=== PATIENT | male | born 1970 | race Caucasian/White ===

== ENCOUNTER 2018-08-26 10:53 | Observation (INO) ==
[2018-08-26] MEDS ORDERED: ASPIRIN PO ONE ×2 (10:56→11:35)
--- NOTE | 2018-08-26 13:23 | EKG Report ---
Test Performed on : 08/26/2018 11:06:59 AM Test Reason : cp Blood Pressure : / mmHG Vent. Rate : 084 BPM Atrial Rate : 084 BPM P-R Int : 150 ms QRS Dur : 084 ms QT Int : 368 ms P-R-T Axes : 033 -05 026 degrees QTc Int : 434 ms Normal sinus rhythm. Normal ECG No previous ECGs available Unconfirmed Result
--- NOTE | 2018-08-26 13:44 | Diag Imaging Result Doc PS360 ---
CHEST-1 VIEW - 08/26/2018 INDICATION: chest pain COMPARISON: None FINDINGS: The lungs are normally expanded and clear. Heart size and mediastinal contours are normal. No pneumothorax or pleural effusion. IMPRESSION: Negative exam. Electronically signed by Shyam Guillermo 08/26/2018 1:42 PM
[2018-08-26 14:05] LABS: BASO# 0.06 X1000 (0.0-0.2); BASO% 0.7 % (0.0-0.8); EOS# 0.28 X1000 (0.0-0.7); EOS% 3.2 % (0.0-10.0); HEMATOCRIT 45.6 % (42.0-52.0); HEMOGLOBIN 16.3 g/dL (14.0-18.0); IMM GRAN# 0.03 X1000 (0.0-0.04); IMM GRAN% 0.3 % (0.0-0.5); LYMPH# 3.35 X1000 (1.2-3.4); LYMPH% 38.2 % (20.5-51.1); MCH 29.5 PG (27-31); MCHC 35.7 g/dL (33-37); MCV 82.5 FL (81-99); MONO# 0.69 X1000 (0.11-0.59); MONO% 7.9 % (1.7-9.3); MPV 10.2 FL (7.4-10.4); NEUT# 4.35 X1000 (1.4-6.5); NEUT% 49.7 % (42.2-75.2); PLT 264 X1000 (130-400); RBC 5.53 XMIL (4.7-6.1); RDW 12.9 % (11.5-14.5); WBC 8.76 X1000 (4.8-10.8)
[2018-08-26 14:10] LABS: INR 0.91
[2018-08-26 14:12] LABS: PTT 26.4 Seconds (22.3-41.8)
[2018-08-26 14:23] LABS: AGAP 13; CHLORIDE 98 mmol/L (98-107); POTASSIUM 4.6 mmol/L (3.5-5.1); SODIUM 134 mmol/L (136-145); TCO2 23 mmol/L (25-35)
[2018-08-26 14:24] LABS: ALB/GLOB RATIO 1.3; ALBUMIN 4.1 g/dL (3.5-5.0); ALKALINE PHOSPHATASE 127 U/L (32-122); BUN 13 mg/dL (8-22); CALCIUM 8.7 mg/dL (8.8-10.2); COSMO 286; CREATININE 0.9 mg/dL (0.7-1.2); ESTIMATED GFR > 60; GOT 18 U/L (10-34); GPT 20 U/L (10-44); TOTAL BILIRUBIN 0.53 mg/dL (0.20-1.00); TOTAL PROTEIN 7.2 g/dL (6.3-8.3)
[2018-08-26 14:26] LABS: GLUCOSE 421 mg/dL (70-104)
[2018-08-26] MEDS ORDERED: HUMULIN R IV ONE (14:35)
--- NOTE | 2018-08-26 15:07 | PROVIDER DOCUMENTATION ---
This chart was entered by Nani Betancourt Scribe, acting as scribe for Mati Hill MD. HPI-Chest Pain - General Chief Complaint: Chest Pain Stated Complaint: CHEST PAIN,HIGH BP Time Seen by Provider: 08/26/18 11:05 Source: patient, family ( and daughter daughter is RN) Allergies/Adverse Reactions: Patient Allergies Allergy/AdvReac Type Severity Reaction Status Date / Time No Known Allergies Allergy Verified 08/26/18 11:22 Home Medications: Home Medication List Medication Instructions Recorded Confirmed Last Taken Type Aspirin 81 each PO DAILY 11/30/15 11/30/15 11/29/15 History Gabapentin 300 mg PO HS 11/30/15 11/30/15 11/29/15 History Lisinopril 5 mg PO DAILY 11/30/15 11/30/15 11/29/15 History Methocarbamol [Robaxin-750] 750 mg PO Q8H PRN #20 tablet 11/30/15 Unknown Rx Tramadol HCl [Ultram] 50 mg PO Q6H PRN #20 tablet 11/30/15 Unknown Rx - History of Present Illness-CP Nature of Presenting Problem: 47 yowm presents to the ed with chest pain constant since last night. pt has significant heart hx and medical hx. pt is anxious on exam and sts pain radiates to arms pt saw his pcp this am and with cardiac hx and nausea sob dizziness plus chest pain BP (176/101) was sent to ed to be screened this am Location: reports: other (left anterior) Chest Pain Radiation: reports: arms Quality of Pain: reports: sharp Severity in ED: moderate Onset/Duration: last night Timing: still present, constant Context/Activities at Onset: reports: light activity Modifying Factors: improves with: nothing Associated Symptoms: reports: dizziness, nausea, shortness of breath. denies: abdominal pain, back pain, vomiting Nitro Today/Relief: no nitro taken today Aspirin Treatment Today: 325 mg x 1, provided by ED Prior Chest Pain/Cardiac Workup: reports: heart attack, stress test Similar Symptoms Previously?: Yes Recently Seen Here or By Another Healthcare Provider: Yes (saw pcp this am) Review of Systems - Adult - REVIEW OF SYSTEMS - ADULT Constitutional: denies: chills, fever Eyes: reports: no symptoms reported Ears, Nose, Mouth & Throat: reports: no symptoms reported Cardiovascular: reports: see HPI, chest pain. denies: palpitations, syncope Respiratory: reports: shortness of breath. denies: cough, wheezing Gastrointestinal: reports: nausea. denies: abdominal pain, diarrhea, vomiting Genitourinary: reports: no symptoms reported Musculoskeletal: denies: back pain, neck pain Integumentary: reports: no symptoms reported Neurological: reports: see HPI, dizziness/vertigo. denies: headache/migraines, seizure, slurred speech, syncope, tremors Psychiatric: reports: see HPI, anxiety Endocrine: reports: no symptoms reported Hematologic/Lymphatic: reports: no symptoms reported Allergic/Immunologic: reports: no symptoms reported All Other Systems: Reviewed and Negative Past History - Adult - PAST MEDICAL HISTORY-ADULT Review of Records: reports: Nursing Assessment Review, Medications Reviewed Major Childhood Illnesses: reports: denies history Cardiovascular: reports: CHF, HTN, hyperlipidemia Respiratory: reports: asthma Gastrointestinal: reports: GERD Genitourinary: reports: denies history Musculoskeletal: reports: denies history, other (neuropathy) Hand Dominance: Right Handed Neurological: reports: denies history Psychiatric: reports: anxiety Endocrine/Immune: reports: Diabetes Diabetes Type: Type 1 Other Conditions: reports: denies history - PRIOR SURGERIES/PROCEDURES Surgical/Procedure History: reports: orthopedic (extremity) - IMMUNIZATION STATUS Childhood Immunizations: See Nurse Assessment Flu Vaccine: See Nurse Assessment - FAMILY HISTORY Family History: reviewed, not pertinent - SOCIAL HISTORY Smoking: denies Substance Use: denies Living Situation: family Physical Exam-General - PHYSICAL EXAM-ADULT Initial Vital Signs Reviewed: Yes - CONSTITUTIONAL General Appearance: appears well, alert, mild distress, obese, anxious - EYES Eyes: PERRL/EOMI, pink conjunctivae - HEAD, EARS, NOSE, MOUTH & THROAT HENMT: moist mucous membranes, normal ENT inspection - NECK Neck: non-tender, full range of motion, supple, normal inspection - RESPIRATORY Respiratory: chest non-tender, lungs clear, normal breath sounds - CARDIOVASCULAR Cardiovascular: normal peripheral pulses, regular rate, rhythm - GASTROINTESTINAL (ABDOMEN) Abdominal Exam: normal bowel sounds, non tender, soft, other (c/o nausea) - LYMPHATIC Lymphatic: no adenopathy - MUSCULOSKELETAL Back Exam: normal inspection, no CVA tenderness, no vertebral tenderness Extremity: normal range of motion, non-tender, normal gait, normal inspection, n o pedal edema, no calf tenderness, pelvis stable - SKIN Integumentary: normal color, normal turgor, warm/dry - NEUROLOGIC Neurologic: grossly normal, no motor/sensory deficits - PSYCHIATRIC Psych/Mental Status: normal mood/affect, normal thought content, normal thought process, oriented x 3, anxious - HEART Score HEART Score: History: Moderately Suspicious HEART Score: ECG: Non-Specific Repolarization Disturbance/LBBB/PM HEART Score: Age: 45-65 Years HEART Score: Risk Factors for Atherosclerotic Disease: > or = 3 Risk Factors or History of Atherosclerotic Disease HEART Score: Troponin: < or = Normal Limit Total HEART Score:: 5 Progress - PLAN OF CARE/RESULTS Progress/Plan/Lab Results: Vital Signs - 8 hr 08/26/18 11:00 08/26/18 11:05 08/26/18 11:30 Temperature 97.3 F L Pulse Rate 86 Respiratory Rate 17 Blood Pressure 163/95 176/101 O2 Sat by Pulse Oximetry 97 96 95 08/26/18 11:37 08/26/18 12:00 08/26/18 12:01 Temperature Pulse Rate Respiratory Rate Blood Pressure 153/90 151/89 O2 Sat by Pulse Oximetry 96 98 95 08/26/18 12:30 08/26/18 12:31 08/26/18 13:00 Temperature Pulse Rate 75 Respiratory Rate Blood Pressure 148/83 O2 Sat by Pulse Oximetry 96 96 96 08/26/18 13:02 08/26/18 13:30 08/26/18 13:31 Temperature Pulse Rate 77 80 80 Respiratory Rate Blood Pressure 138/81 135/93 O2 Sat by Pulse Oximetry 96 96 94 L 08/26/18 14:00 08/26/18 14:01 08/26/18 14:30 Temperature Pulse Rate 77 77 79 Respiratory Rate Blood Pressure 143/87 O2 Sat by Pulse Oximetry 95 95 95 08/26/18 14:31 08/26/18 15:00 Temperature Pulse Rate 76 77 Respiratory Rate Blood Pressure 137/92 O2 Sat by Pulse Oximetry 95 95 Laboratory Results - last 24 hr 08/26/18 08/26/18 08/26/18 11:40 11:40 11:40 WBC 8.76 RBC 5.53 Hgb 16.3 Hct 45.6 MCV 82.5 MCH 29.5 MCHC 35.7 RDW Std Deviation 12.9 Plt Count 264 MPV 10.2 Immature Gran % (Auto) 0.3 Neut % (Auto) 49.7 Lymph % (Auto) 38.2 Parmer % (Auto) 7.9 Eos % (Auto) 3.2 Baso % (Auto) 0.7 Immature Gran # (Auto) 0.03 Neut # (Auto) 4.35 Lymph # (Auto) 3.35 [place]mer # (Auto) 0.69 H Eos # (Auto) 0.28 Baso # (Auto) 0.06 PT INR PTT (Actin FS) Sodium 134 L Potassium 4.6 Chloride 98 Carbon Dioxide 23 L Anion Gap 13 BUN 13 Creatinine 0.9 Estimated GFR/1.73 m2 > 60 BUN/Creatinine Ratio 14 Glucose 421 H* Calculated Osmolality 286 Calcium 8.7 L Total Bilirubin 0.53 AST 18 ALT 20 Alkaline Phosphatase 127 H Troponin T Aul-O-Ldnkkzkgvep Pept 80 Total Protein 7.2 Albumin 4.1 Globulin 3.1 Albumin/Globulin Ratio 1.3 08/26/18 08/26/18 11:40 11:40 WBC RBC Hgb Hct MCV MCH MCHC RDW Std Deviation Plt Count MPV Immature Gran % (Auto) Neut % (Auto) Lymph % (Auto) [place] % (Auto) Eos % (Auto) Baso % (Auto) Immature Gran # (Auto) Neut # (Auto) Lymph # (Auto) [place]mer # (Auto) Eos # (Auto) Baso # (Auto) PT 13.0 INR 0.91 PTT (Actin FS) 26.4 Sodium Potassium Chloride Carbon Dioxide Anion Gap BUN Creatinine Estimated GFR/1.73 m2 BUN/Creatinine Ratio Glucose Calculated Osmolality Calcium Total Bilirubin AST ALT Alkaline Phosphatase Troponin T < 0.010 [id number]-[id number] Pept Total Protein Albumin Globulin Albumin/Globulin Ratio Orders Category Date Time Status Heart Healthy Diet Diet 08/26/18 13:44 Completed Heart Healthy Diet Diet 08/26/18 16:00 Active CHEST-1 VIEW [RAD] Stat Exams 08/26/18 13:14 Completed CBC WITH ELECTRONIC DIFF [HEME] Stat Lab 08/26/18 11:40 Completed COMPREHENSIVE METABOLIC PANEL [CHEM] Stat Lab 08/26/18 11:40 Completed PRO B-NATRIURETIC PEPTIDE Stat Lab 08/26/18 11:40 Completed PROTIME WITH INR [COAG] Stat Lab 08/26/18 11:40 Completed PTT [COAG] Stat Lab 08/26/18 11:40 Completed TROPONIN T Stat Lab 08/26/18 11:40 Completed Aspirin Med 08/26/18 11:35 Discontinued 325 mg PO NOW ONE Insulin Human Regular [Humulin R] Med 08/26/18 14:35 Discontinued 10 unit IV NOW ONE EKG [EKG] Stat Ther 08/26/18 13:16 Draft Result Diagrams: 08/26/18 11:40 08/26/18 11:40 - REASSESSMENT Reassessment #1 Time Reassessed: 11:27 Status: improving Reassessment #2 Time Reassessed: 15:59 (pt sts pain was stress related and wants to go home) Status: improving - EKG 1 Time of EKG reading by physician:: 11:06 EKG Read and Signed by:: Mati Hill EKG Interpretation (*Must complete 3 of following elements*): Normal Rate: 84 Rhythm: nsr [place]: normal QRS: normal CT Interval: normal ST Wave: normal - XRAY 1 XRAY: Bilateral XRAY Study: Chest Impression: See EMR Report (CHEST-1 VIEW - 08/26/2018 INDICATION: chest pain COMPARISON: None FINDINGS: The lungs are normally expanded and clear. Heart size and mediastinal contours are normal. No pneumothorax or pleural effusion. IMPRESSION: Negative exam. Electronically signed by Shyam Guillermo 08/26/2018 1:42 PM 08/26/18 1342 Interpreting Physician: Shyam Guillermo MD Dictated Date/Time: 08/26/18 1342 cc: Mati Hill MD; Jamari Chin) - CONSULTS/PCP/HOSPITALIST Notification #1 *Consult/PCP/Hospitalist*: hospitalist spoke with summer Time Discussed: 15:04 (dr cardenas) Consult Disposition: Admit Departure - Departure Date of Disposition Decision: 08/26/18 Time of Disposition Decision: 15:06 DIAGNOSIS: Chest pain, Uncontrolled diabetes mellitus Disposition: ADMITTED INPATIENT 09 Certified Medical Emergency: Emergent Condition: Fair Referrals and Follow-Ups: Jamari Chin CRNP [Primary Care Provider] - - Critical Care Note This patient required my direct & personal management of CC.: Yes Total Time (mins): 36 Critical Care Statement: This patient required my direct personal management to treat or rule out processes, the absence of which, could potentiallly result in sudden, clinically significant life or limb threatening deterioration. Attestation - Physician/ GINI Attestation Patient care was provided by Advanced Practice Provider:: No The physician spent face to face time with patient:: Yes Advanced Practice Provider documentation review:: Supervising physician onsite and consulted in the evaluation and care of this patient. The physician did have a face to face encounter with the patient. This chart was documented by the indicated scribe, (Nani Betancourt Scribe) and accurately reflects the services I performed and decisions made by me, Mati Hill MD, as attested by the provider's signature.
[2018-08-26] MEDS ORDERED: ZOFRAN IV PRN (17:11)
[2018-08-26] MEDS ORDERED: NITROGLYCERIN SL PRN (17:11)
[2018-08-26] MEDS ORDERED: ELAVIL PO PRN ×3 (19:29→20:23)
[2018-08-26] MEDS: TYLENOL PO PRN (19:59)
[2018-08-26] MEDS: NEURONTIN PO SCH (20:00)
[2018-08-26] MEDS ORDERED: NASONEX NASAL SPRAY NAS PRN (20:10)
[2018-08-26] MEDS ORDERED: FLONASE NAS PRN (20:10)
[2018-08-26 20:30] LABS: AGAP 12; BUN 14 mg/dL (8-22); CALCIUM 8.8 mg/dL (8.8-10.2); CHLORIDE 95 mmol/L (98-107); COSMO 290; CREATININE 1.1 mg/dL (0.7-1.2); ESTIMATED GFR > 60; GLUCOSE 513 mg/dL (70-104); POTASSIUM 4.2 mmol/L (3.5-5.1); SODIUM 133 mmol/L (136-145); TCO2 26 mmol/L (25-35)
[2018-08-26] MEDS: SYMBICORT 160/4.5 MICROGM INHALER INH SCH (20:31)
[2018-08-26] MEDS ORDERED: SINGULAIR PO SCH (21:00)
[2018-08-26] MEDS ORDERED: NORVASC PO SCH (21:00)
[2018-08-26] MEDS ORDERED: HUMULIN R SUBQ SCH (21:00)
[2018-08-26] MEDS ORDERED: PRINIVIL PO SCH (21:00)
--- NOTE | 2018-08-26 21:00 | HISTORY AND PHYSICAL ---
PRIMARY CARE PHYSICIAN: Dr. Casanova CHIEF COMPLAINT: Chest pain, elevated blood sugar, and elevated blood pressure. HISTORY OF PRESENT ILLNESS: Mr. Bangura is a 47-year-old male, sitting up in the chair in the ER, in no acute distress. States that he had started having chest pain since about Wednesday of this week. He also has been having elevated blood pressure and elevated blood sugar. The patient states he went to his primary care doctor 2 times this week, but states that finally he decided to come to the ER after some persuasion from his family. The patient denies any chest pain at this present time. Blood sugar on admit to the ER was 421. The patient was subsequently treated in the ER with some insulin. Blood pressure in the ER initially was 163/95. The patient denies any nausea or vomiting. States that he does have chronic pain and is not sure if his chest pain is related to his chronic pain or anxiety. The patient states he has been having a lot of anxiety over the past few weeks due to worrying about whether or not he is going to lose his disability. The patient states he has been on disability for many years and cannot work. PAST MEDICAL HISTORY: 1. TN x 2 2. Insulin-dependent diabetes 3. Hypertension 4. Right hip pain 5. Peripheral neuropathy 6. Autonomic stomach 7. Pneumonia PAST SURGICAL HISTORY: Includes right shoulder surgery, left and right hand surgery. FAMILY HISTORY: Mother is positive for hypertension, diabetes, and CHF. Father is positive for hypertension and diabetes. Both mother and father have had MIs. SOCIAL HISTORY: Patient denies any alcohol, smoking, or drug abuse. ALLERGIES: No known drug allergies. HOME MEDICATIONS: 1. Amitriptyline 100 mg p.o. as needed for sleep. 2. Amlodipine besylate 5 mg p.o. every night at bedtime. 3. Budesonide/formoterol fumarate 60/4.5 mcg 2 puffs inhaled b.i.d. 4. Furosemide 40 mg p.o. daily. 5. Gabapentin 300 mg p.o. t.i.d. 6. Lisinopril 40 mg p.o. daily. 7. Methocarbamol 750 mg p.o. as needed. 8. Nasonex 1 spray daily. 9. Protonix 40 mg p.o. daily. 10. Tramadol 50 mg p.r.n. LABORATORY DATA AND DIAGNOSTICS: White blood cell count 8.76, hemoglobin 16.3, hematocrit 45.6, platelet count 264,000. PT was 13, INR 0.9, and PTT was 26.4. Sodium 134, potassium 4.6, carbon dioxide 23, BUN 13, creatinine 0.9, and GFR greater than 60, glucose 421, calcium 8.7, bilirubin 0.53, AST 18, ALT 20, alkaline phosphatase 127. Troponin less than 0.01. ProBNP 80. Reports: Chest x-ray done on 08/26/2018 was negative. Lungs are clear. EKG showed normal sinus rhythm. REVIEW OF SYSTEMS: A 14-point review of systems was completed and all negative except for what is stated above in the HPI. PHYSICAL EXAMINATION: VITAL SIGNS: Temperature 97.3 degrees, pulse rate 86, respiratory rate 17, blood pressure 163/95, and O2 saturation 97% on room air. GENERAL: This is a 47-year-old male sitting in a chair in the ER, in no acute distress. Well nourished, well developed, able to answer questions appropriately. HEENT: Head is atraumatic, normocephalic. Pupils are equal, round, reactive to light. Mucous membranes are moist. No dentition noted. NECK: Supple. No lymphadenopathy. Trachea is midline. No JVD noted. CARDIOVASCULAR: S1, S2. No murmurs, gallops, or rubs. Regular rate and rhythm. RESPIRATORY: Lung sounds clear and equal. Chest is symmetrical. Respirations are nonlabored with no accessory muscle usage. GASTROINTESTINAL: Abdomen is soft, nontender, nondistended. Bowel sounds are present x4. NEUROLOGIC: Patient is awake, alert, oriented and able to answer all questions appropriately. Able to follow all commands. Cranial nerves intact. MUSCULOSKELETAL: The patient able to move all extremities with full strength noted and purposeful movement. No deformity is noted. EXTREMITIES: No clubbing, cyanosis, or edema. DP and PT pulses are present and palpable. SKIN: Warm, dry, and intact. No rashes or bruises noted. ASSESSMENT AND PLAN: 1. Acute Coronary Syndrome. We will admit the patient to the medical floor and do serial CK and troponins. EKG ordered for the a.m. 2. Hypertension. We will continue the patient's home medications for hypertension. 3. Congestive heart failure. We will continue the patient's Lasix. 4. Insulin-dependent diabetes. We will check blood sugars before meals and at bedtime and follow with sliding scale insulin. 5. Peripheral neuropathy. We will start the patient back on his gabapentin. Dictated by ANNETTE Castorena for Jarrell Love MD cc: MD Dr. Edilberto Hdez Patient presenting with chest pain.Agree with assessment and plan of ANNETTE. Dr. Love. [facility]
[2018-08-26] MEDS: HUMULIN R SUBQ SCH (21:55)
[2018-08-27] MEDS: HUMULIN R SUBQ SCH ×4 (00:36→10:54)
[2018-08-27] MEDS: TYLENOL PO PRN (05:46)
[2018-08-27] MEDS ORDERED: PRILOSEC PO SCH (07:00)
[2018-08-27 07:47] VITALS: BP 137/78
[2018-08-27 07:49] LABS: BASO# 0.09 X1000 (0.0-0.2); EOS# 0.46 X1000 (0.0-0.7); HEMOGLOBIN 16.1 g/dL (14.0-18.0); IMM GRAN# 0.02 X1000 (0.0-0.04); IMM GRAN% 0.2 % (0.0-0.5); LYMPH# 3.83 X1000 (1.2-3.4); LYMPH% 41.9 % (20.5-51.1); MCH 29.9 PG (27-31); MCHC 35.8 g/dL (33-37); MCV 83.5 FL (81-99); MONO# 0.83 X1000 (0.11-0.59); MONO% 9.1 % (1.7-9.3); MPV 9.8 FL (7.4-10.4); NEUT# 3.91 X1000 (1.4-6.5); NEUT% 42.8 % (42.2-75.2); PLT 278 X1000 (130-400); RBC 5.39 XMIL (4.7-6.1); RDW 13.1 % (11.5-14.5); WBC 9.14 X1000 (4.8-10.8)
[2018-08-27 08:08] LABS: CHOLESTEROL 213 mg/dL (0-200); HDL 38 mg/dL (35-55); LDL 125 mg/dL; TRIGLYCERIDES 249 mg/dL (39-160); VLDL 50 mg/dL
[2018-08-27] MEDS: SYMBICORT 160/4.5 MICROGM INHALER INH SCH (08:38)
[2018-08-27] MEDS ORDERED: ASPIRIN PO SCH (09:00)
[2018-08-27] MEDS ORDERED: ZYRTEC PO SCH (09:00)
[2018-08-27] MEDS ORDERED: NASONEX NASAL SPRAY NAS SCH (09:00)
[2018-08-27] MEDS ORDERED: PROTONIX PO SCH (09:00)
[2018-08-27] MEDS ORDERED: LASIX PO SCH (09:00)
[2018-08-27] MEDS ORDERED: FLONASE NAS SCH (09:00)
[2018-08-27] MEDS: NEURONTIN PO SCH ×2 (09:27→14:20)
[2018-08-27 09:55] LABS: HEMOGLOBIN A1C 9.1 % (4.8-6.0)
--- NOTE | 2018-08-27 20:24 | DISCHARGE SUMMARY ---
ADMISSION DATE: 08/26/2018 DISCHARGE DATE: 08/27/2018 DISPOSITION: Home. FOLLOW-UP: 1. Dr. Casanova. 2. Dr. Queen. CONSULTATIONS DURING THIS ADMISSION: None. IMAGING STUDIES OF SIGNIFICANCE: 1. A chest x-ray showed a negative exam. 2. EKG showed a normal sinus rhythm and left axis deviation, but no ST-segment abnormality or T- wave abnormality. ADMISSION DIAGNOSES: 1. Acute coronary syndrome. 2. Hypertension. 3. History of congestive heart failure. 4. Insulin-dependent diabetes mellitus. 5. Peripheral neuropathy. DIAGNOSES AT THE TIME OF DISCHARGE: 1. Atypical chest pain with negative EKG and troponin. The patient is advised to follow up with Cardiology on an outpatient basis for further outpatient cardiology evaluation. 2. Severe uncontrolled diabetes mellitus with presenting A1c of 9.1. The patient follows up with Dr. Hidalgo. He also follows up with Endocrine in [facility]. He has type 1 diabetes mellitus, and he does not want any changes to be made to his current insulin regimen. 3. Hypertension, improved. 4. Severe peripheral neuropathy. Patient is on gabapentin and Elavil (amitriptyline). DISCHARGE MEDICATIONS: 1. Gabapentin 300 three times per day. 2. Lisinopril 40 mg daily. 3. Pantoprazole 40 mg daily. 4. Elavil 100 mg p.r.n. 5. Lasix 40 mg daily. 6. Amlodipine 5 mg p.o. at bedtime. 7. Insulin 70/30, 25 units b.i.d. PRESENTING COMPLAINT: Chest pain, elevated blood sugar and elevated blood pressure. HISTORY OF PRESENTING COMPLAINT: Mr. Bangura is a 47-year-old male who came to the emergency department because of chest discomfort. On presentation his blood pressures was 176/101. Because of his presentation and risk factors, he was admitted for further cardiac rate risk stratification. HOSPITAL COURSE: Mr. Bangura's blood pressure got controlled. His glucose was also managed with insulin therapy. He felt better. His EKG was unremarkable, and his troponins were done 4 times and were negative. Because he was not having any more symptoms, it was thought that he would be okay to be discharged and follow up with Cardiology on an outpatient basis for further cardiac evaluation. and daughter were at the bedside at the time of the encounter, and they both expressed understanding. He is clinically stable and currently asymptomatic. He has been tolerating his diet well. All the discharge instructions have been discussed with him. He voiced understanding PHYSICAL EXAMINATION: Vitals: Blood pressure is 137/78, pulse of 72, respirations 18, temperature is 97.9. The patient was saturating 95% on room air. TIME SPENT FOR DISCHARGE: 35 minutes. cc: MD Jamie Rhodes MD Joel A. Powell, MD
[2018-08-27] MEDS ORDERED: HUMULIN N SUBQ SCH (21:00)
--- NOTE | 2018-08-29 09:26 | EKG Report ---
Test Performed on : 08/27/2018 06:13:45 AM Test Reason : chest pain Blood Pressure : / mmHG Vent. Rate : 079 BPM Atrial Rate : 079 BPM P-R Int : 156 ms QRS Dur : 082 ms QT Int : 392 ms P-R-T Axes : 050 -02 020 degrees QTc Int : 449 ms Normal sinus rhythm. Normal ECG When compared with ECG of 26-AUG-2018 11:06, (Unconfirmed) No significant change was found Confirmed by Iona ARMENTA, Eliezer Bal ([id number]) on 08/30/2018 9:59:42 AM
== END 2018-08-27 15:02 | disposition home or self-care (01) ==
LOC: 3N 10:53 → ED 10:53 → SUATTDRO 17:29
PROVIDERS: ATTEND Internal Medicine
CPT/HCPCS: 71010; 71045; 80048; 80053; 80061; 82550; 82948; 83036; 83880; 84484; 85025; 85610; 85730; 93005; 93010; 94640; 94761; A9270; XXXXX